=== PATIENT | female | born 1995 | race Caucasian/White ===

== ENCOUNTER 2021-08-14 01:11 | Emergency (ER) | payer OTHER, SELFPAY ==
[2021-08-14 01:14] VITALS: BP 106/68; PULSE 102; RESP 20; TEMP 37; O2SAT 93; BMI 45.1
--- NOTE | 2021-08-14 01:21 | ED.ALLEREA ---
HPI - Allergic Reaction General Chief complaint: Allergic Reaction Stated complaint: ?Allergic Reaction Time Seen by Provider: 08/14/21 01:18 Source: patient Mode of arrival: ambulatory Limitations: no limitations History of Present Illness MD complaint: allergic reaction and facial swelling Onset (ago): minute(s) (30) Exposure: other (possible dog dander exposure) Symptoms: itching, lip swelling and difficulty breathing Severity: moderate Treatment prior to arrival: none Previous Allergic Reaction History: prior ED visit(s) Related Data Previous Rx's Medication Instructions Recorded prednisone 20 mg tablet 40 mg PO DAILY 4 Days #8 tab 08/14/21 Allergies Allergy/AdvReac Type Severity Reaction Status Date / Time enviromental Allergy Unknown Itching Uncoded 08/14/21 01:13 ENVIRONMENTAL Allergy Unknown HIVES, Uncoded 07/04/20 16:24 DIFF BREATHING, SWELLING LIPS. environmental Allergy Unknown Itching Uncoded 08/14/21 01:13 Pt states no known allergy to Allergy Unknown Itching Uncoded 08/14/21 01:13 seasonal Allergy Unknown Itching Uncoded 08/14/21 01:13 Review of Systems Review of Systems: Constitutional : No Fever, No Chills ENT/Mouth : positive oral swelling, No Hoarseness, No Swallowing Difficulty Eyes: No Eye Pain, No Swelling, No Redness Cardiovascular : No Chest Pain, No SOB Respiratory : pos Cough, No Sputum, No Wheezing, No Smoke Exposure, No Dyspnea Gastrointestinal : No Nausea, No Vomiting, No Diarrhea, No abdominal Pain Genitourinary : No Dysuria, No Urinary Frequency, No Hematuria Musculoskeletal : No joint pain, No Myalgias, No Joint Swelling Skin : No Skin Lesions, no rash Neuro : No Weakness, No Numbness, No Headache Psych : No Anxiety/Panic, No Depression Heme/Lymph: No Bruising, No Lymphadenopathy Endocrine : No Polyuria, No Polydipsia All other systems reviewed and are negative PMFSH Past Medical History Attestation statement: The following information was validated with the patient. Medical History Asthma Social History Social History (Updated 08/14/21 @ 01:23 by Kerline New DO) Patient Tobacco Use Status: Never used Tobacco Advance Directives: No Advance Directives Information Provided: Yes Physical Exam Vital Signs: Vital Signs: Last Vital Signs Temp 98.0 F 08/14/21 02:00 Pulse 76 08/14/21 02:00 Resp 16 08/14/21 02:00 BP 112/58 L 08/14/21 02:00 Pulse Ox 99 08/14/21 02:00 Body Mass Index 45.1 Appearance: Alert. Oriented X3. No acute distress. Eyes: Pupils equal, round and reactive to light. erythema around both eyes ENT: bilateral upper and lower lip swelling, no swelling in posterior pharynx Neck: Normal inspection. Neck supple. CVS: Normal heart rate and rhythm. Pulses normal. Respiratory: No respiratory distress. Breath sounds diminished throughout Abdomen: Soft and non-tender. Skin: Skin warm and dry. Normal skin color. Normal skin turgor. Extremities: No lower extremity edema. Neuro: Oriented X 3. No motor deficit. No sensory deficit. Course Course Course Narrative: patient reports she is feeling much better, will continue to observe patient doing well 1.5 hours symptoms improved stable for DC MDM - Allergic Reaction MDM Narrative Medical decision making narrative: 26 yo female with hx of asthma and allergies here with c/o lip swelling and shortness of breath after being exposed to dog dander. At this time will give IV steroids, IV pepcid/benadryl and albuterol neb. Dispo per results and improvement Discharge Plan Discharge Clinical Impression: Allergic reaction Patient Disposition: Home, Self-Care Instructions: General Allergic Reaction (ED) Additional Instructions: return to ED for any worsening symptoms or concerns Prescriptions: New prednisone 20 mg tablet 40 mg PO DAILY 4 Days Qty: 8 RF: 0 Stand Alone Forms: Work/School Release
[2021-08-14] MEDS: Albuterol Sulfate (0.083%) 2.5 MG/3 ML VIAL.NEB INHALE (01:26)
[2021-08-14] MEDS: diphenhydrAMINE HCL 50 MG/ML VIAL 25 MG IVPUSH (01:26)
[2021-08-14] MEDS: Famotidine/PF 20 MG/2 ML VIAL IVPUSH (01:27)
[2021-08-14] MEDS: methylPREDNISolone Sod Succ 125 MG/2 ML VIAL IVPUSH (01:27)
[2021-08-14 01:54] VITALS: PULSE 74; RESP 16; O2SAT 98
[2021-08-14] MEDS: Albuterol Sulfate 90 MCG 8 GM INHALER 2 PUFF INHALE (01:55)
[2021-08-14 02:00] VITALS: BP 112/58; PULSE 76; RESP 16; TEMP 36.7; O2SAT 99
[2021-08-14 02:51] VITALS: BP 105/52; PULSE 76; RESP 18; TEMP 36.6; O2SAT 95
== END 2021-08-14 02:57 | disposition home or self-care (01) ==
PROVIDERS: Emergency Provider Emergency Medicine; PCP Physician Assistant Medical
DX: T78.40XA Allergy, unspecified, initial encounter (principal); X58.XXXA Exposure to other specified factors, initial encounter; J45.909 Unspecified asthma, uncomplicated
CPT/HCPCS: 96374; 96375; 99284; J1200; J2930

== ENCOUNTER 2022-04-29 09:59 | Emergency (ER) | payer OTHER, SELFPAY ==
[2022-04-29 10:06] VITALS: BP 130/90; PULSE 70; O2SAT 97
[2022-04-29 10:08] VITALS: BP 106/72; PULSE 58; RESP 18; TEMP 36.6; O2SAT 96; BMI 49.2
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
[2022-04-29 11:01] LABS: MANUAL DIFF FLAG NO
[2022-04-29 11:03] LABS: Basophils Percent Auto 0.3 % (0-2); Eosinophils Absolute Auto 0.3 X10*3/uL (0.0-0.4); Eosinophils Percent Auto 4.4 % (0-4); Imm Gran Abs Auto 0.02 X10*3/uL (0.00-0.03); Imm Gran Pct Auto 0.3 % (0.0-0.4); Lymphocytes Absolute Auto 1.6 X10*3/uL (1.2-4.9); Lymphocytes Percent Auto 23.5 % (20-40); Mean Corpuscular HGB Conc 31.6 g/dl (31.0-35.0); Mean Corpuscular Hemoglobin 27.4 pg (27.0-33.0); Mean Corpuscular Volume 86.8 fL (80.0-98.0); Mean Platelet Volume 11.4 fL (9.4-12.3); Monocytes Absolute Auto 0.6 X10*3/uL (0.1-1.2); Monocytes Percent Auto 8.9 % (2-11); Neutrophils Absolute Auto 4.1 x10*3/uL (2.0-8.3); Neutrophils Percent Auto 62.6 % (45-73); Platelet Count 245 X10*3/uL (160-400); Red Blood Count 4.38 X10*6/uL (4.20-5.50); White Blood Count 6.6 X10*3/uL (4.8-10.8)
[2022-04-29 11:20] LABS: Amphetamine Screen Urine Not Detected (Not Detect); Barbiturates, Urine Not Detected (Not Detect); Benzodiazepines Screen Urine Not Detected (Not Detect); Cannabinoid Screen Urine POSITIVE (Not Detect); Cocaine Screen Urine Not Detected (Not Detect); Fentanyl, urine Not Detected (Not Detect); Opiate Screen Urine Not Detected (Not Detect); Phencyclidine Screen Urine Not Detected (Not Detect)
[2022-04-29 11:21] LABS: COVID-19 Test Negative (Negative); IDNOW Serial# 55D5AD1C
[2022-04-29 11:25] LABS: Alanine Aminotransferase 14 U/L (0-31); Albumin Level 3.8 g/dL (3.5-5.0); Alkaline Phosphatase 79 U/L (39-117); Anion Gap 9 (12-20); Aspartate Amino Transferase 16 U/L (5-31); Bilirubin Direct 0.2 mg/dL (0.0-0.5); Bilirubin Total 0.3 mg/dL (0.0-1.0); Blood Urea Nitrogen 9 mg/dL (9-16); Calcium 8.6 mg/dL (8.4-10.2); Carbon Dioxide 27 mmol/L (22-29); Chloride 107 mmol/L (96-108); Creatinine Clr Calc Pharmacy 179.9; Estimated Glomerular Filt Rate > 60; Ethanol < 10 mg/dL; Glucose Random 99 mg/dL (60-115); Potassium 4.2 mmol/L (3.3-5.1); Sodium 139 mmol/L (135-145); Total Protein 6.6 g/dL (6.5-8.0)
[2022-04-29 11:37] LABS: Acetaminophen LAB < 1 mcg/mL (<30); Salicylate < 5.0 mg/dL (15-30)
--- NOTE | 2022-04-29 12:10 | PC.NURSE ---
supplement to triage note
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
== END 2022-04-29 16:57 | disposition home or self-care (01) ==
PROVIDERS: Physician Assistant; Emergency Provider Emergency Medicine; PCP Physician Assistant Medical
DX: F41.9 Anxiety disorder, unspecified (principal); F32.9 Major depressive disorder, single episode, unspecified; R45.851 Suicidal ideations; F12.90 Cannabis use, unspecified, uncomplicated; Z79.899 Other long term (current) drug therapy; Z20.822 Contact with and (suspected) exposure to COVID-19
CPT/HCPCS: 36415; 80048; 80076; 80143; 80179; 80307; 82077; 85025; 87635; 99283; 99284